=== PATIENT | male | born 1995 | race Caucasian/White ===

== ENCOUNTER 2017-02-12 20:52 | Emergency (ER) | payer BC, OTHER ==
[~2017-02-12] VITALS: Ht 190.5 cm; Wt 87.7 kg
[2017-02-12] MEDS ORDERED: FLONASEALLERGY NS (20:53)
[2017-02-12 20:54] VITALS: TEMP 98
[2017-02-12] MEDS ORDERED: NORCO 325 MG-51 TAB PO (21:51)
[2017-02-12 22:15] VITALS: BP 115/79; PULSE 54
== END 2017-02-12 22:17 | disposition home or self-care (01) ==
LOC: COL.ER 20:52
DX: S43.005A Unspecified dislocation of left shoulder joint, initial encounter (principal); X50.0XXA Overexertion from strenuous movement or load, initial encounter; Y93.67 Activity, basketball
CPT/HCPCS: J1170; J2060; J7030